=== PATIENT | male | born 1960 | race Caucasian/White ===

== ENCOUNTER 2020-03-08 11:27 | Emergency (ER) | payer OTHER ==
[2020-03-08] MEDS ORDERED: Sodium Chloride 0.9% 10 ML Syringe FLUSH PRN (12:06)
--- NOTE | 2020-03-08 12:56 | CT ---
PROCEDURE INFORMATION: Exam: CT Head Without Contrast Exam date and time: 03/08/2020 12:26 PM Age: 59 years old Clinical indication: Pain; Weakness, extremity; Left; Headache not specified TECHNIQUE: Imaging protocol: Computed tomography of the head without contrast. Radiation optimization: All CT scans at this facility use at least one of these dose optimization techniques: automated exposure control; mA and/or kV adjustment per patient size (includes targeted exams where dose is matched to clinical indication); or iterative reconstruction. COMPARISON: No relevant prior studies available. FINDINGS: Brain: Chronic appearing lacunar infarct in right thalamus. There is no acute intracranial hemorrhage. There is mild lucency in the cerebral white matter, likely microvascular disease although non-specific. There is slightly more focal lucency in right floyd radiata consistent age indeterminate ischemia/infarct. This could be further evaluated with MRI if desired. Webb white differentiation is intact. There are no extra-axial fluid collections. No evidence of mass. There is no mass effect or midline shift. Cerebral ventricles: The ventricles and sulci are enlarged, consistent with age related mild volume loss / atrophy. No hydrocephalus. Bones/joints: No acute fracture. Paranasal sinuses: Visualized sinuses are unremarkable. No fluid levels. Mastoid air cells: No significant mastoid effusion. Vasculature: There is vascular calcification. Soft tissues: Unremarkable as visualized. IMPRESSION: No acute intracranial hemorrhage. Atrophy and microvascular disease. Age indeterminate microvascular change / infarct in right floyd radiata. This could be further evaluated with MRI if desired. Thank you for allowing us to participate in the care of your patient. Dictated and Authenticated by: Deandra aHy MD 03/08/2020 1:47 PM Central Time ([place] & [place]) [facility] CENTERJose Alejandro
--- NOTE | 2020-03-08 14:49 | MR ---
PROCEDURE INFORMATION: Exam: MR Head Without Contrast Exam date and time: 03/08/2020 1:46 PM Age: 59 years old Clinical indication: Weakness, extremity; Patient HX: Left sided weakness x3 days TECHNIQUE: Imaging protocol: MR of the head without contrast. COMPARISON: CT Head wo Cont 03/08/2020 12:26 PM FINDINGS: Brain: Small focus of restricted diffusion and FLAIR hyperintensity within the right floyd radiata. Small chronic right thalamic lacunar infarct. Few scattered nonspecific T2/FLAIR hyperintensities of the periventricular and deep subcortical white matter, most likely secondary to chronic small vessel ischemic change. No intracranial hemorrhage or extra-axial fluid collection. No evidence of mass effect or midline shift. Cerebral ventricles: No ventriculomegaly. Bones/joints: Unremarkable. Paranasal sinuses: Normal as visualized. No acute sinusitis. Mastoid air cells: No mastoid effusion. Orbits: Unremarkable. Soft tissues: Unremarkable. IMPRESSION: 1. Small focus of restricted diffusion and FLAIR hyperintensity within the right floyd radiata, concerning for acute to subacute infarct. 2. Other chronic findings, as above. Thank you for allowing us to participate in the care of your patient. Dictated and Authenticated by: Gerardo Snell MD 03/08/2020 3:34 PM Central Time ([place] & [place]) BI
--- NOTE | 2020-03-08 15:49 | EDM.PDOC ---
ED HPI GENERAL MEDICAL PROBLEM - General Chief Complaint: Neuro Symptoms/Deficits Stated Complaint: L SIDED WEAKNESS Time Seen by Provider: 03/08/20 11:42 Source of Information: Reports: Patient History Limitations: Reports: No Limitations - History of Present Illness INITIAL COMMENTS - FREE TEXT/NARRATIVE: The patient presents with left sided numbness and weakness. This started 3 days ago. He was sitting down eating when it started. He had moderate weakness to his left arm and leg. He had a little trouble walking and he was dropping things with his left hand. It also affected his golf swing. He has a golf practice device at his home. He has headache that come and go since then. He says the weakness is nearly gone now. He has a history of CAD with a CABG back 10 years ago. He is on medicine for HTN and hypercholesterolemia. He also takes an aspirin. He has no fever, chills, cough, congestion, runny nose, chest pain, shortness of breath, or abdominal pain. He still smokes. Onset: Sudden Duration: Day(s): (3) Severity: Moderate Improves with: Reports: None Worsens with: Reports: None Associated Symptoms: Reports: Headaches. Denies: Chest Pain, Cough, Fever/Chills, Nausea/Vomiting, Shortness of Breath - Related Data Allergies Allergy/AdvReac Type Severity Reaction Status Date / Time No Known Allergies Allergy Verified 03/08/20 11:35 Past Medical History Cardiovascular History: Reports: High Cholesterol, Hypertension - Past Surgical History Cardiovascular Surgical History: Reports: Other (See Below) Other Cardiovascular Surgeries/Procedures: heart sx 2009 Social & Family History - Family History Family Medical History: No Pertinent Family History - Tobacco Use Tobacco Use Status *Q: Current Every Day Tobacco User Years of Tobacco use: 45 Packs/Tins Daily: 1 - Caffeine Use Caffeine Use: Reports: None - Recreational Drug Use Recreational Drug Use: No ED ROS GENERAL - Review of Systems Review Of Systems: See Below Constitutional: Reports: No Symptoms HEENT: Reports: No Symptoms Respiratory: Reports: No Symptoms Cardiovascular: Reports: No Symptoms Endocrine: Reports: No Symptoms GI/Abdominal: Reports: No Symptoms, Mucous in Stool Musculoskeletal: Reports: No Symptoms Skin: Reports: No Symptoms Neurological: Reports: Headache, Numbness, Weakness ED EXAM, NEURO - Physical Exam Exam: See Below Exam Limited By: No Limitations General Appearance: Alert, No Apparent Distress Ears: Normal External Exam Nose: Normal Inspection Throat/Mouth: Normal Inspection Head Exam: Atraumatic, Normocephalic Neck: Normal Inspection, Supple, Non-Tender Respiratory/Chest: No Respiratory Distress, Lungs Clear, Normal Breath Sounds Cardiovascular: Regular Rate, Rhythm, No Edema, No Murmur GI/Abdominal: Soft, Non-Tender, No Organomegaly, No Mass Neurological: Alert, No Motor/Sensory Deficits, Oriented x 3 #1 Interpretation EKG Date: 03/08/20 Time: 11:42 Rhythm: NSR Rate (Beats/Min): 57 [place]: Normal P-Wave: Present QRS: RBBB ST-T: Normal QT: Normal Course - Vital Signs Last Recorded V/S: Last Vital Signs Temp 96.9 F 03/08/20 11:32 Pulse 61 03/08/20 11:32 Resp 18 03/08/20 11:32 BP 158/95 H 03/08/20 11:32 Pulse Ox 100 03/08/20 11:32 - Orders/Labs/Meds Orders: Active Orders 24 hr Category Date Time Status Cardiac Monitoring [RC] . DIRECTED Care 03/08/20 12:06 Active EKG 12 Lead [EKG Documentation Completion] [RC] ROUTINE Care 03/08/20 11:42 Active Holter Monitor 48 Hours [RC] .PRN Care 03/08/20 15:55 Active Peripheral IV Care [RC] . DIRECTED Care 03/08/20 12:07 Active Sodium Chloride 0.9% [Saline Flush] Med 03/08/20 12:06 Active 10 ml FLUSH ASDIRECTED PRN Peripheral IV Insertion Adult [OM.PC] Stat Oth 03/08/20 12:06 Ordered Medication Orders Sodium Chloride (Saline Flush) 10 ml FLUSH ASDIRECTED PRN PRN Reason: Keep Vein Open Last Admin: 03/08/20 12:09 Dose: 10 ml Documented by: TRIPP Labs: Laboratory Tests 03/08/20 03/08/20 03/08/20 Range/Units 11:32 11:35 11:35 WBC 10.26 H (4.23-9.07) K/mm3 RBC 4.82 (4.63-6.08) M/mm3 Hgb 15.0 (13.7-17.5) gm/dl Hct 45.6 (40.1-51.0) % MCV 94.6 H (79.0-92.2) fl MCH 31.1 (25.7-32.2) pg MCHC 32.9 (32.2-35.5) g/dl RDW Std Deviation 44.1 H (35.1-43.9) fL Plt Count 209 (163-337) K/mm3 MPV 12.0 (9.4-12.3) fl Neut % (Auto) 69.9 H (34.0-67.9) % Lymph % (Auto) 20.6 L (21.8-53.1) % [place]rell % (Auto) 6.7 (5.3-12.2) % Eos % (Auto) 2.3 (0.8-7.0) Baso % (Auto) 0.3 (0.1-1.2) % Neut # (Auto) 7.17 H (1.78-5.38) K/mm3 Lymph # (Auto) 2.11 (1.32-3.57) K/mm3 [place]rell # (Auto) 0.69 (0.30-0.82) K/mm3 Eos # (Auto) 0.24 (0.04-0.54) K/mm3 Baso # (Auto) 0.03 (0.01-0.08) K/mm3 Manual Slide Review Normal smear PT 10.7 (9.7-12.0) SECONDS INR 1.00 APTT 27.3 (21.7-31.4) SECONDS Sodium (136-145) mEq/L Potassium (3.5-5.1) mEq/L Chloride (98-107) mEq/L Carbon Dioxide (21-32) mEq/L Anion Gap (5-15) BUN (7-18) mg/dL Creatinine (0.7-1.3) mg/dL Est Cr Clr Drug Dosing mL/min Estimated GFR (MDRD) (>60) mL/min BUN/Creatinine Ratio (14-18) Glucose (74-106) mg/dL POC Glucose 132 H (70-105) mg/dL Calcium (8.5-10.1) mg/dL Total Bilirubin (0.2-1.0) mg/dL AST (15-37) U/L ALT (16-63) U/L Alkaline Phosphatase (46-116) U/L Troponin I (0.00-0.056) ng/mL Total Protein (6.4-8.2) g/dl Albumin (3.4-5.0) g/dl Globulin gm/dL Albumin/Globulin Ratio (1-2) 03/08/20 Range/Units 11:35 WBC (4.23-9.07) K/mm3 RBC (4.63-6.08) M/mm3 Hgb (13.7-17.5) gm/dl Hct (40.1-51.0) % MCV (79.0-92.2) fl MCH (25.7-32.2) pg MCHC (32.2-35.5) g/dl RDW Std Deviation (35.1-43.9) fL Plt Count (163-337) K/mm3 MPV (9.4-12.3) fl Neut % (Auto) (34.0-67.9) % Lymph % (Auto) (21.8-53.1) % Tyrrell % (Auto) (5.3-12.2) % Eos % (Auto) (0.8-7.0) Baso % (Auto) (0.1-1.2) % Neut # (Auto) (1.78-5.38) K/mm3 Lymph # (Auto) (1.32-3.57) K/mm3 [place]rell # (Auto) (0.30-0.82) K/mm3 Eos # (Auto) (0.04-0.54) K/mm3 Baso # (Auto) (0.01-0.08) K/mm3 Manual Slide Review PT (9.7-12.0) SECONDS INR APTT (21.7-31.4) SECONDS Sodium 141 (136-145) mEq/L Potassium 3.6 (3.5-5.1) mEq/L Chloride 103 (98-107) mEq/L Carbon Dioxide 28 (21-32) mEq/L Anion Gap 13.6 (5-15) BUN 13 (7-18) mg/dL Creatinine 1.1 (0.7-1.3) mg/dL Est Cr Clr Drug Dosing 69.09 mL/min Estimated GFR (MDRD) > 60 (>60) mL/min BUN/Creatinine Ratio 11.8 L (14-18) Glucose 101 (74-106) mg/dL POC Glucose (70-105) mg/dL Calcium 9.3 (8.5-10.1) mg/dL Total Bilirubin 0.5 (0.2-1.0) mg/dL AST 12 L (15-37) U/L ALT 18 (16-63) U/L Alkaline Phosphatase 87 (46-116) U/L Troponin I < 0.017 (0.00-0.056) ng/mL Total Protein 7.9 (6.4-8.2) g/dl Albumin 4.3 (3.4-5.0) g/dl Globulin 3.6 gm/dL Albumin/Globulin Ratio 1.2 (1-2) Meds: Medications Generic Name Dose Route Start Last Admin Trade Name Freq PRN Reason Stop Dose Admin Sodium Chloride 10 ml 03/08/20 12:06 03/08/20 12:09 Saline Flush FLUSH 10 ml ASDIRECTED PRN Administration Keep Vein Open - Re-Assessments/Exams Free Text/Narrative Re-Assessment/Exam: 03/08/20 15:50 I ordered an IV saline lock, EKG, CT of his head and labs. The CT of his head shows no acute intracranial hemorrhage. Atrophy and microvascular disease. Age indeterminate microvascular change infarct in right floyd radiata. This could be further evaluated with MRI if desired. I did get an MRI and it showed small focus of restricted diffusion and FLAIR hyperintensity within the right floyd radiata, concerning for acute to subacute infarct. His labs look good. I called Dr Jimenez the neurologist superintendent transportation at [facility] in [place]. I let her know what is going on and that the patient did not want to be admitted. She recommended he double his aspirin and get an echo, carotid artery US and holter. I will get them ordered an have her follow up with a provider in our clinic. Departure - Departure Time of Disposition: 15:55 Disposition: Home, Self-Care 01 Condition: Good Clinical Impression: Cerebrovascular accident (CVA) Qualifiers: CVA mechanism: unspecified Qualified Code(s): I63.9 - Cerebral infarction, unspecified - Discharge Information *PRESCRIPTION DRUG MONITORING PROGRAM REVIEWED*: Not Applicable *COPY OF PRESCRIPTION DRUG MONITORING REPORT IN PATIENT BELA: Not Applicable Referrals: PCP,None [Primary Care Provider] - Curt Murray NP [Nurse Practitioner] - 3 Days Forms: ED Department Discharge Additional Instructions: Take 2 of you aspirin. Wear the holter monitor for 48 hours. I have ordered an ultrasound of your heart and neck vessels for tomorrow at 8 and 8:30am. Please come early to register. Follow up with Uriel Murray in our clinic on Sunday03/15/20 at 9:30am. Please return if you are worse. Sepsis Event Note (ED) - Evaluation Sepsis Screening Result: No Definite Risk - Focused Exam Vital Signs: Vital Signs Temp Pulse Resp BP Pulse Ox 03/08/20 11:32 96.9 F 61 18 158/95 H 100 - My Orders Last 24 Hours: My Active Orders 03/08/20 11:42 EKG 12 Lead [EKG Documentation Completion] [RC] ROUTINE 03/08/20 12:06 Cardiac Monitoring [RC] . DIRECTED Sodium Chloride 0.9% [Saline Flush] 10 ml FLUSH ASDIRECTED PRN Peripheral IV Insertion Adult [OM.PC] Stat 03/08/20 12:07 Peripheral IV Care [RC] . DIRECTED 03/08/20 15:55 Holter Monitor 48 Hours [RC] .PRN - Assessment/Plan Last 24 Hours: My Active Orders 03/08/20 11:42 EKG 12 Lead [EKG Documentation Completion] [RC] ROUTINE 03/08/20 12:06 Cardiac Monitoring [RC] . DIRECTED Sodium Chloride 0.9% [Saline Flush] 10 ml FLUSH ASDIRECTED PRN Peripheral IV Insertion Adult [OM.PC] Stat 03/08/20 12:07 Peripheral IV Care [RC] . DIRECTED 03/08/20 15:55 Holter Monitor 48 Hours [RC] .PRN
== END 2020-03-08 16:30 | disposition home or self-care (01) ==
LOC: JD.ED 11:27
DX: I63.9 Cerebral infarction, unspecified (principal); I25.10 Atherosclerotic heart disease of native coronary artery without angina pectoris; I10 Essential (primary) hypertension; F17.210 Nicotine dependence, cigarettes, uncomplicated
CPT/HCPCS: 36415; 70450; 70450-26; 70551; 70551-26; 80053; 82962; 84484; 85025; 85610; 85730; 93005; 93225; 93226; 99285-25

== ENCOUNTER 2024-09-20 08:37 | Inpatient (IN) | payer MEDICARE, BC ==
[2024-09-20 09:35] LABS: O2 SATURATION ARTERIAL 95.9 % (96.0-97.0)
[2024-09-20 09:36] LABS: BASE EXCESS ARTERIAL 1.1 (-2-2.0); BICARBONATE,ARTERIAL 23.4 meq/L (22.0-26.0)
[2024-09-20] MEDS ORDERED: Sodium Chloride 0.9% 100 ML IV SCH (10:00)
[2024-09-20 10:26] LABS: BASOPHILS PERCENT AUTO 0.2 % (0.0-1.0); EOSINOPHILS ABSOLUTE AUTO 0.1 K/mm3 (0.0-0.4); EOSINOPHILS PERCENT AUTO 0.4 % (0.0-6.0); HEMATOCRIT 40.1 % (42.0-52.0); HEMOGLOBIN 13.7 gm/dl (14.0-18.0); IMMATURE GRAN ABSOLUTE AUTO 0.06 K/mm3 (0.00-0.05); IMMATURE GRAN PERCENT AUTO 0.5 % (0.0-0.4); LYMPHOCYTES ABSOLUTE AUTO 0.9 K/mm3 (1.0-4.8); LYMPHOCYTES PERCENT AUTO 6.7 % (24.0-44.0); MEAN CORPUSCULAR HEMOGLOBIN 31.5 pg (28.0-32.0); MEAN CORPUSCULAR HGB CONC 34.2 g/dl (32.0-36.0); MEAN CORPUSCULAR VOLUME 92.2 fl (83.0-99.0); MEAN PLATELET VOLUME 10.3 fl (9.4-12.4); MONOCYTES PERCENT AUTO 7.2 % (0.0-8.0); NEUTROPHILS ABSOLUTE AUTO 11.3 K/mm3 (1.8-7.7); PLATELET COUNT,PLT 238 K/mm3 (150-400); RED BLOOD CELL COUNT 4.35 M/mm3 (4.52-5.90); WHITE BLOOD CELL COUNT,WBC 13.32 K/mm3 (3.9-11.3)
[2024-09-20 11:00] LABS: A/G RATIO 0.9 (1-2); ALBUMIN 3.3 g/dl (3.4-5.0); ANION GAP 12.8 (5-15); BILIRUBIN TOTAL 0.7 mg/dL (0.2-1.0); BUN/CREATININE RATIO 15.6 (14-18); CREATININE 0.9 mg/dL (0.7-1.3); EST CRCL DRUG DOSING (CG) 81.83 mL/min; MAGNESIUM 1.9 mg/dL (1.8-2.4); POTASSIUM,K 3.8 mEq/L (3.5-5.1)
[2024-09-20] MEDS: Iopamidol 755 Mg/ML 100 ML Bottle IVPUSH ONE (11:15)
[2024-09-20] MEDS ORDERED: hydrALAZINE 20 MG/ML SDV IVPUSH PRN (15:45)
[2024-09-20] MEDS ORDERED: Labetalol 100 MG/20 ML MDV IVPUSH PRN (15:45)
[2024-09-20] MEDS ORDERED: Sennosides/Docusate Sodium 50-8.6 MG Tab PO PRN (15:56)
[2024-09-20] MEDS ORDERED: Ondansetron 4 MG Tab.DIS PO PRN (15:56)
[2024-09-20] MEDS ORDERED: Acetaminophen/HYDROcodone 325-5 MG Tab PO PRN (15:56)
[2024-09-20] MEDS ORDERED: Melatonin 3 MG Tab PO PRN (15:56)
[2024-09-20] MEDS ORDERED: Acetaminophen 325 MG Tab PO PRN (15:56)
[2024-09-20] MEDS: cefTRIAXone 1 GM Vial IVPUSH SCH (16:52)
[2024-09-20] MEDS: Azithromycin 250 MG Tab PO SCH (16:52)
[2024-09-20] MEDS: Albuterol/Ipratropium 3.0-0.5 MG/3 ML Neb Soln NEB SCH (16:58)
[2024-09-20] MEDS ORDERED: Albuterol 6.7 GM Inhaler INH PRN (18:08)
[2024-09-20] MEDS: Enalapril 5 MG Tab PO SCH (22:36)
[2024-09-21 05:54] LABS: BASOPHILS PERCENT AUTO 0.2 % (0.0-1.0); EOSINOPHILS ABSOLUTE AUTO 0.4 K/mm3 (0.0-0.4); EOSINOPHILS PERCENT AUTO 3.4 % (0.0-6.0); HEMATOCRIT 35.4 % (42.0-52.0); HEMOGLOBIN 12.4 gm/dl (14.0-18.0); IMMATURE GRAN ABSOLUTE AUTO 0.06 K/mm3 (0.00-0.05); IMMATURE GRAN PERCENT AUTO 0.5 % (0.0-0.4); LYMPHOCYTES ABSOLUTE AUTO 1.3 K/mm3 (1.0-4.8); LYMPHOCYTES PERCENT AUTO 11.7 % (24.0-44.0); MEAN CORPUSCULAR HEMOGLOBIN 32.2 pg (28.0-32.0); MEAN CORPUSCULAR VOLUME 91.9 fl (83.0-99.0); MEAN PLATELET VOLUME 10.6 fl (9.4-12.4); MONOCYTES ABSOLUTE AUTO 1.4 K/mm3 (0.0-0.8); MONOCYTES PERCENT AUTO 12.4 % (0.0-8.0); NEUTROPHILS ABSOLUTE AUTO 8.1 K/mm3 (1.8-7.7); NEUTROPHILS PERCENT AUTO 71.8 % (41.0-71.0); PLATELET COUNT,PLT 228 K/mm3 (150-400); RED BLOOD CELL COUNT 3.85 M/mm3 (4.52-5.90); WHITE BLOOD CELL COUNT,WBC 11.32 K/mm3 (3.9-11.3)
[2024-09-21 06:04] LABS: A/G RATIO 0.9 (1-2); ALBUMIN 2.8 g/dl (3.4-5.0); ANION GAP 14.5 (5-15); BILIRUBIN TOTAL 0.5 mg/dL (0.2-1.0); BUN/CREATININE RATIO 16.7 (14-18); CALCIUM 8.9 mg/dL (8.5-10.1); CREATININE 0.9 mg/dL (0.7-1.3); EST CRCL DRUG DOSING (CG) 79.17 mL/min; PHOSPHORUS 3.2 mg/dL (2.6-4.7); POTASSIUM,K 3.5 mEq/L (3.5-5.1); PROTEIN TOTAL,TP 5.9 g/dl (6.4-8.2)
[2024-09-21] MEDS: Metoprolol Succinate 25 MG Tab.ER PO SCH (08:43)
[2024-09-21] MEDS: Cholecalciferol (Vitamin D3) 5,000 UNIT Cap PO SCH (08:43)
[2024-09-21] MEDS: Enoxaparin 40 MG/0.4 ML Syringe SUBCUT SCH (08:44)
[2024-09-21] MEDS: amLODIPine 10 MG Tab PO SCH (08:44)
[2024-09-21] MEDS: Rosuvastatin 10 MG Tab PO SCH (08:44)
[2024-09-21] MEDS: Brimonidine 0.2% Ophth Soln 5 ML Bottle EYEBOTH SCH (08:44)
[2024-09-21] MEDS: Clopidogrel 75 MG Tab PO SCH (08:44)
[2024-09-21] MEDS ORDERED: Enalapril 5 MG Tab PO SCH (09:00)
[2024-09-21] MEDS: Fluticasone/Umeclidin/Vilanter [Trelegy Ellipta 100-62.5- INH SCH (10:48)
[2024-09-21] MEDS: Potassium Chloride 20 MEQ Tab.ER PO ONE (18:10)
[2024-09-22] MEDS ORDERED: Budesonide 0.5 MG/2 ML Neb Susp NEB SCH (08:00)
[2024-09-22] MEDS: Fluticasone/Umeclidin/Vilanter [Trelegy Ellipta 100-62.5- INH SCH (08:25)
[2024-09-22] MEDS ORDERED: Tiotropium BR/Olodaterol HCL 4 GM Inhalation Spray 2.5mcg/1 dose; 10 doses INH SCH (09:00)
[2024-09-22] MEDS ORDERED: Non-Formulary Medication 1 Each INH SCH (09:00)
== END 2024-09-22 14:15 | disposition home or self-care (01) | DRG 189 ==
LOC: JD.ED 08:37 → JD.MS 13:18
PROVIDERS: ADMIT Student in an Organized Health Care Education/Training Program; ATTEND Student in an Organized Health Care Education/Training Program
DX: G89.18 Other acute postprocedural pain (principal); R09.02 Hypoxemia; C80.1 Malignant (primary) neoplasm, unspecified; C78.02 Secondary malignant neoplasm of left lung; J96.01 Acute respiratory failure with hypoxia; E78.00 Pure hypercholesterolemia, unspecified; I10 Essential (primary) hypertension; J44.9 Chronic obstructive pulmonary disease, unspecified; Z98.890 Other specified postprocedural states; Z85.118 Personal history of other malignant neoplasm of bronchus and lung; Z79.899 Other long term (current) drug therapy; Z98.49 Cataract extraction status, unspecified eye; Z86.73 Personal history of transient ischemic attack (TIA), and cerebral infarction without residual deficits; Z87.891 Personal history of nicotine dependence
CPT/HCPCS: 36415; 36600; 71045; 71275; 80053; 82550; 82803; 83735; 83880; 84484; 85025; 99285; Q9967 ×2; 84100; 93010; 94640; 94761; 99222; 99232; 99239; A9270-GY; J0696; J1650